=== PATIENT | male | born 1955 | race Caucasian/White ===

== ENCOUNTER 2017-12-24 12:21 | Day surgery (SDC) | payer OTHER ==
[~2017-12-24] VITALS: Ht 180.3 cm; Wt 105.5 kg
[~2017-12-24 12:21] MED LIST: ATOR20; DRON400T; GLIM2; METF500; METO25ER; WARF5; XIGDUO XR 10 M1 EAC1
== END 2017-12-24 14:51 | disposition home or self-care (01) ==
LOC: ORSCSDS 12:21
PROVIDERS: Internal Medicine Gastroenterology
PROC: 0DBH8ZX Excision of Cecum, Via Natural or Artificial Opening Endoscopic, Diagnostic (ICD-10-PCS; principal; 2017-12-24 13:45)
PROC: 0DBK8ZX Excision of Ascending Colon, Via Natural or Artificial Opening Endoscopic, Diagnostic (ICD-10-PCS; principal; 2017-12-24 13:45)
PROC: 0DBL8ZX Excision of Transverse Colon, Via Natural or Artificial Opening Endoscopic, Diagnostic (ICD-10-PCS; principal; 2017-12-24 13:45)
PROC: 0DBM8ZX Excision of Descending Colon, Via Natural or Artificial Opening Endoscopic, Diagnostic (ICD-10-PCS; principal; 2017-12-24 13:45)
DX: Z12.11 Encounter for screening for malignant neoplasm of colon (principal); D12.0 Benign neoplasm of cecum; D12.2 Benign neoplasm of ascending colon; D12.3 Benign neoplasm of transverse colon; D12.4 Benign neoplasm of descending colon; K64.8 Other hemorrhoids; E78.5 Hyperlipidemia, unspecified; I10 Essential (primary) hypertension; E11.9 Type 2 diabetes mellitus without complications; I48.91 Unspecified atrial fibrillation; Z79.01 Long term (current) use of anticoagulants; Z79.84 Long term (current) use of oral hypoglycemic drugs; Z79.899 Other long term (current) drug therapy
CPT/HCPCS: 82947; 88305; J7120

== ENCOUNTER 2021-06-30 01:13 | Emergency (ER) | payer OTHER ==
[~2021-06-30 01:13] MED LIST changes: +HYDR1TAB94 PO
== END 2021-06-30 04:55 | disposition home or self-care (01) ==
LOC: ER 01:13
DX: S92.511A Displaced fracture of proximal phalanx of right lesser toe(s), initial encounter for closed fracture (principal); X58.XXXA Exposure to other specified factors, initial encounter
CPT/HCPCS: 90471; 90714; 96372; 99283-25; J1885

== ENCOUNTER 2021-07-01 12:02 | Emergency (ER) | payer OTHER ==
[~2021-07-01] VITALS: Ht 180.3 cm; Wt 101.2 kg
== END 2021-07-01 14:32 | disposition home or self-care (01) ==
LOC: ER 12:02
DX: S92.911A Unspecified fracture of right toe(s), initial encounter for closed fracture (principal); E11.42 Type 2 diabetes mellitus with diabetic polyneuropathy; I10 Essential (primary) hypertension; E78.00 Pure hypercholesterolemia, unspecified; Z79.899 Other long term (current) drug therapy; X58.XXXA Exposure to other specified factors, initial encounter
CPT/HCPCS: 99283

== ENCOUNTER 2021-07-05 19:35 | Inpatient (IN) | payer OTHER, MEDICARE ==
[~2021-07-05] VITALS: Ht 177.8 cm; Wt 97.8 kg
[~2021-07-05 19:35] MED LIST changes: -ATOR20; +ATOR20 PO; -METF500; +METF500 PO
[2021-07-05] MEDS ORDERED: XARELTO20 M1 PO (19:59)
[2021-07-05] MEDS ORDERED: XIGDUO PO (20:03)
[2021-07-05] MEDS ORDERED: GLIM4 PO (20:04)
[2021-07-05 20:24] LABS: BASOPHILS ABSOLUTE AUTO 0.03 K/mm3 (0.00-0.23); BASOPHILS PERCENT AUTO 0 % (0-2); EOSINOPHILS PERCENT AUTO 2 % (0-6); Hematocrit 42.7 % (37.0-53.0); Hemoglobin 14.2 g/dL (13.5-17.5); IMMATURE GRAN ABSOLUTE AUTO 0.07 K/mm3 (0.00-0.10); IMMATURE GRAN PERCENT AUTO 1 % (0-1); LYMPHOCYTES ABSOLUTE AUTO 1.17 K/mm3 (0.84-5.20); LYMPHOCYTES PERCENT AUTO 13 % (21-46); MONOCYTES ABSOLUTE AUTO 0.79 K/mm3 (0.16-1.47); MONOCYTES PERCENT AUTO 9 % (4-13); Mean Corpuscular HGB Conc 33.3 g/dL (31.5-36.5); Mean Corpuscular Volume 93 fL (80-100); Mean Platelet Volume 8.9 fL (9.1-12.4); NEUTROPHILS ABSOLUTE AUTO 6.97 K/mm3 (1.96-9.15); NEUTROPHILS PERCENT AUTO 75 % (41-73); Platelet Count 228 K/mm3 (150-400); RDW Coefficient Variation 12.4 % (11.7-14.2); RDW Standard Deviation 42.5 fL (35.1-46.3); Red Blood Cell Count 4.58 M/mm3 (4.30-5.90); White Blood Cell Count 9.23 K/mm3 (4.00-11.30)
[2021-07-05 20:25] LABS: Calcium, Ionized (POC) 1.13 mmol/L (1.10-1.46); Chloride (POC) 104 mmol/L (98-108); Creatinine (POC) 0.9 mg/dL (0.8-1.3); Glucose (ISTAT POC) 186 mg/dL (70-99); Hemoglobin (POC) 13.9 g/dL (13.5-17.5); Potassium (POC) 4.1 mmol/L (3.5-5.5); Sodium (POC) 140 mmol/L (135-148); Total CO2 (POC) 22 mmol/L (21-32)
[2021-07-05 20:51] LABS: Alanine Aminotransfer (ALT/SGP 21 U/L (12-78); Albumin, Blood 3.1 g/dL (3.4-5.0); Albumin/Globulin Ratio 0.9 (0.8-1.8); Alk Phos 81 U/L (50-136); Anion Gap 6 mmol/L (6-16); Aspartate Aminotrans (AST/SGOT 10 U/L (12-37); Bilirubin, Total 0.7 mg/dL (0.1-1.0); Blood Urea Nitrogen 15 mg/dL (8-24); Bun/Creatinine Ratio 15.3 (12.0-20.0); CO2, Blood 26 mmol/L (21-32); Calcium, Blood 8.6 mg/dL (8.5-10.1); Chloride, Blood 108 mmol/L (98-108); Creatinine, Blood 0.98 mg/dL (0.60-1.20); Globulin, Blood 3.4 g/dL (2.2-4.0); Glomerular Filtration Rate >60 (60-); Glucose, Blood 197 mg/dL (70-99); Potassium, Blood 4.1 mmol/L (3.5-5.5); Sodium, Blood 140 mmol/L (136-145); Total Protein, Blood 6.5 g/dL (6.4-8.2)
[2021-07-05 23:26] LABS: SARS-Cov-2 (COVID-19) PCR, MMC NEGATIVE (NEGATIVE)
[2021-07-06 04:16] LABS: BASOPHILS ABSOLUTE AUTO 0.03 K/mm3 (0.00-0.23); BASOPHILS PERCENT AUTO 0 % (0-2); EOSINOPHILS ABSOLUTE AUTO 0.13 K/mm3 (0.00-0.68); EOSINOPHILS PERCENT AUTO 1 % (0-6); Hemoglobin 13.4 g/dL (13.5-17.5); IMMATURE GRAN ABSOLUTE AUTO 0.07 K/mm3 (0.00-0.10); IMMATURE GRAN PERCENT AUTO 1 % (0-1); LYMPHOCYTES ABSOLUTE AUTO 1.29 K/mm3 (0.84-5.20); LYMPHOCYTES PERCENT AUTO 14 % (21-46); MONOCYTES ABSOLUTE AUTO 0.88 K/mm3 (0.16-1.47); MONOCYTES PERCENT AUTO 9 % (4-13); Mean Corpuscular HGB 30.9 pg (26.0-34.0); Mean Corpuscular HGB Conc 32.7 g/dL (31.5-36.5); Mean Corpuscular Volume 95 fL (80-100); NEUTROPHILS ABSOLUTE AUTO 7.01 K/mm3 (1.96-9.15); NEUTROPHILS PERCENT AUTO 75 % (41-73); Platelet Count 227 K/mm3 (150-400); RDW Coefficient Variation 12.5 % (11.7-14.2); RDW Standard Deviation 43.4 fL (35.1-46.3); Red Blood Cell Count 4.34 M/mm3 (4.30-5.90); White Blood Cell Count 9.41 K/mm3 (4.00-11.30)
[2021-07-06 04:28] LABS: Anion Gap 3 mmol/L (6-16); Blood Urea Nitrogen 15 mg/dL (8-24); Bun/Creatinine Ratio 16.5 (12.0-20.0); CO2, Blood 28 mmol/L (21-32); Calcium, Blood 8.7 mg/dL (8.5-10.1); Chloride, Blood 109 mmol/L (98-108); Creatinine, Blood 0.91 mg/dL (0.60-1.20); Glomerular Filtration Rate >60 (60-); Glucose, Blood 103 mg/dL (70-99); Potassium, Blood 4.4 mmol/L (3.5-5.5); Sodium, Blood 140 mmol/L (136-145)
--- NOTE | 2021-07-06 06:32 | NUR ---
SHIFT SUMMARY S/P R FOOT CRUSH INJURY c INCREASING ECCYMOSIS AND TENDERNESS, A/O X4, VSS, TOLERATING FLUIDS, DENIES HUNGER THIS SHIFT, REPORTS PAIN WHEN HE PUTS HIS FOOT DOWN FROM AN ELEVATED POSITION WHICH HE REPORTS IS TEMPORARY UNTIL HE AMBULATES. STRONG PULSES IN BOTH FEET. NO ACUTE EVENTS THIS SHIFT, CALL LIGHT IN REACH, WILL CTM AND REPORT TO DAY RN.
--- NOTE | 2021-07-06 12:26 | NUR ---
INTO [facility] VIA BED FROM SURG FLOOR THEN TRANSFERED TO [facility] FROM BED. History, Chart, Medications and Allergies reviewed before start of procedure.Patient confirms NPO status and agrees with scheduled surgery. Lungs clear T/O to Auscultation.
--- NOTE | 2021-07-07 06:23 | NUR ---
VSS. C/O TABOR. GIVEN ACETAMINOPHEN-SEE EMAR. DENIED NEED FOR PAIN MEDICATION FOR R FOOT. R LE ELEVATED ON 2 PILLOWS TO HEART LEVEL. SOFT CAST TO R LE IN PLACE.IV FLUIDS RUNNING. IV ABX GIVEN. +VOIDING. NO ISSUES OVERNIGHT.
[2021-07-07 10:56] LABS: Vancomycin, Trough 12.3 ug/mL (5.0-10.0)
[2021-07-07] MEDS ORDERED: HYDR1TAB94 PO (13:35)
--- NOTE | 2021-07-08 06:26 | NUR ---
VSS. ACETAMINOPHEN GIVEN ONCE DURING SHIFT-SEE EMAR. +VOID. BLOOD GLUCOSE MONITORED, COVERAGE NOT INDICATED. IV FLUIDS RUNNING. IV ABX GIVEN. LIKELY DISCHARGE TODAY, 07/08, WITH DME.
--- NOTE | 2021-07-08 15:06 | NUR ---
DISCHARGE SUMMARY PT REPORTS EXPERIENCING MUCH LESS PAIN TODAY THAN YESTERDAY. HE WORKED WITH PHYSICAL THERAPY TODAY AND WAS ABLE TO TOLERATE IT WELL. INSTRUCTED TO FOLLOW UP WITH PODIATRY AND TO KEEP DRESSING CDI. NON WEIGHT BEARING ON R FOOT. VSS. DC'D HOME WITH .
== END 2021-07-08 15:30 | disposition home or self-care (01) | DRG 914 ==
LOC: ER 19:35 → SURS 22:15
PROVIDERS: Emergency Medicine; Physician Assistant; Podiatrist Foot & Ankle Surgery; ADMIT Family Medicine
PROC: 0JJW0ZZ Inspection of Lower Extremity Subcutaneous Tissue and Fascia, Open Approach (ICD-10-PCS; principal; 2021-07-06 12:30)
DX: S97.81XA Crushing injury of right foot, initial encounter (principal); I96 Gangrene, not elsewhere classified; T79.A21A Traumatic compartment syndrome of right lower extremity, initial encounter; E87.2 Acidosis; Z20.822 Contact with and (suspected) exposure to COVID-19; S92.511A Displaced fracture of proximal phalanx of right lesser toe(s), initial encounter for closed fracture; S92.411A Displaced fracture of proximal phalanx of right great toe, initial encounter for closed fracture; E78.5 Hyperlipidemia, unspecified; I10 Essential (primary) hypertension; I48.91 Unspecified atrial fibrillation; E11.42 Type 2 diabetes mellitus with diabetic polyneuropathy; Z98.890 Other specified postprocedural states; Z79.01 Long term (current) use of anticoagulants; Z79.84 Long term (current) use of oral hypoglycemic drugs; Z79.899 Other long term (current) drug therapy; W20.8XXA Other cause of strike by thrown, projected or falling object, initial encounter
CPT/HCPCS: 36415; 73701; 80047; 80048; 80053; 80202; 82947; 83605; 85014; 85025; 87040; 87070; 87075; 87205; 93005; 93010; 93926; 93971; 96365; 96367; 97116; 97162; 99284-25; A9270; J1815; J2001; J2250; J2370; J2405; J2543; J2704; J2765; J3010; J3370; J7050; J7120; Q9967; U0004

== ENCOUNTER 2021-08-12 06:50 | Day surgery (SDC) | payer OTHER ==
[~2021-08-12] VITALS: Ht 177.8 cm; Wt 96.1 kg
[~2021-08-12 06:50] MED LIST changes: +GLIM4 PO; +XARELTO20 M1 PO; +XIGDUO PO
--- NOTE | 2021-08-12 07:00 | NUR ---
Ambulatory in Day Surgery, WITH DARRIUS AT SIDE. History, Chart, Medications and Allergies reviewed before start of procedure. Lungs clear T/O to Auscultation. Patient confirms NPO status and agrees with scheduled surgery. Pre-Op teaching done. Pt verbalizes understanding. Patient States Post-Procedure ride home has been arranged.
--- NOTE | 2021-08-12 09:44 | NUR ---
EKG DONE PER ANESTHESIA ORDER DT AFLUTTER NOTED IN PACU. EKG SHOWS SAME. PT ASYMPTOMATIC. ANESTHESIA RECOMMENDS FOLLOW UP WITH CARDIOLOGY UPON DISCHARGE AND TO BE SEEN IN ER IF ANY SYMPTOMS DEVELOP. SURGEON AWARE WELL. WILL NOTE ON DISCHARGE INSTRUCTIONS FOR PATIENT TO FOLLOW UP WITH CARDIOLOGY.
--- NOTE | 2021-08-12 10:40 | NUR ---
Discharge instructions reviewed with patient. Patient verbalizes understanding. Copy given to patient to take home. Dressing to procedure site clean, dry, intact with no visible drainage, swelling, erythema or bruising noted. Discharged via wheelchair to private car for ride home.
== END 2021-08-12 10:42 | disposition home or self-care (01) ==
LOC: ORSCMMR 06:50 → ORD 08:15 → ORSCMMR 10:42
PROVIDERS: Podiatrist Foot & Ankle Surgery
PROC: 0Y6P0Z1 Detachment at Right 1st Toe, High, Open Approach (ICD-10-PCS; principal; 2021-08-12 08:15)
DX: I96 Gangrene, not elsewhere classified (principal); S92.501A Displaced unspecified fracture of right lesser toe(s), initial encounter for closed fracture; S92.421A Displaced fracture of distal phalanx of right great toe, initial encounter for closed fracture; E11.40 Type 2 diabetes mellitus with diabetic neuropathy, unspecified; I10 Essential (primary) hypertension; I48.91 Unspecified atrial fibrillation; Z79.01 Long term (current) use of anticoagulants; E78.5 Hyperlipidemia, unspecified; Z79.899 Other long term (current) drug therapy
CPT/HCPCS: 82947; 93005; 93010; J0690; J1100; J2001; J2370; J2405; J2704; J3010; J7120